=== PATIENT | female | born 1990 | race Caucasian/White ===

== ENCOUNTER 2018-04-25 09:44 | Emergency (ER) | payer BC ==
--- NOTE | 2018-04-25 10:26 | ED ---
Throat Pain/Nasal Congestion - HPI Summary HPI Summary: Patient is a 27-year-old female who presents emergency department for a sore throat, dry cough and diarrhea 3-4 days. He states she's been taking over-the- counter anti-inflammatories as well as drinking tea and other home remedies with minimal relief of sore throat. Associated symptoms of chills. Denies abdominal pain, vomiting, urinary symptoms. Denies sick contacts. Symptoms are mild in severity. Eating and swallowing makes symptoms worse. Nothing makes symptoms better. - History of Current Complaint Chief Complaint: EDThroatPain Time Seen by Provider: 04/25/18 10:08 Hx Obtained From: Patient - Allergies/Home Medications Allergies/Adverse Reactions: Allergies Allergy/AdvReac Type Severity Reaction Status Date / Time MS Amoxicillin [Amoxicillin] Allergy Rash Verified 09/19/16 18:52 MS Cephalexin [From Keflex] Allergy Diarrhea Verified 09/19/16 18:52 MS Ciprofloxacin [From Cipro] Allergy Diarrhea Verified 09/19/16 18:52 MS Penicillins [Penicillins] Allergy Rash Verified 09/19/16 18:52 MS Sulfa Drugs [Sulfa Drugs] Allergy Rash Verified 09/19/16 18:52 Home Medications: Home Medications Ibuprofen TAB* [Advil TAB*] 400 - 600 mg PO TID PRN 04/25/18 [History Confirmed 04/25/18] PMH/Surg Hx/FS Hx/Imm Hx Previously Healthy: Yes Endocrine/Hematology History: Denies: Hx Diabetes, Hx Thyroid Disease Cardiovascular History: Denies: Hx Hypertension Respiratory History: Denies: Hx Asthma, Hx Chronic Obstructive Pulmonary Disease (COPD) GI History: Denies: Hx Ulcer - Surgical History Surgery Procedure, Year, and Place: hernia surgery as infant Infectious Disease History: No Infectious Disease History: Denies: Hx Hepatitis, Hx Human Immunodeficiency Virus (HIV), History Other Infectious Disease, Traveled Outside the [place] in Last 30 Days - Family History Known Family History: Positive: Hypertension, Diabetes - Social History Occupation: Employed Full-time Lives: With Family Alcohol Use: Rare Substance Use Type: Reports: None Hx Tobacco Use: No Smoking Status (MU): Never Smoked Tobacco Review of Systems Positive: Chills Eyes: Negative Positive: Sore Throat Cardiovascular: Negative Positive: Cough. Negative: Shortness Of Breath Positive: Diarrhea. Negative: Abdominal Pain, Vomiting, Nausea Genitourinary: Negative Negative: burning, dysuria, frequency Neurological: Negative All Other Systems Reviewed And Are Negative: Yes Physical Exam Triage Information Reviewed: Yes Vital Signs On Initial Exam: Initial Vitals Temp Pulse Resp BP Pulse Ox 97.8 F 83 17 153/73 100 04/25/18 10:00 04/25/18 10:00 04/25/18 10:00 04/25/18 10:00 04/25/18 10:00 Vital Signs Reviewed: Yes Appearance: Positive: Well-Appearing - Patient sitting on bed in no acute distress. Pleasant. Skin: Positive: Warm, Dry Head/Face: Positive: Normal Head/Face Inspection Eyes: Positive: Normal ENT: Positive: TMs normal, Other - Oropharynx is injected with mild bilateral tonsillar edema, exudate on the right. Uvula is midline without deviation or edema. No drooling or muffled voice. Neck: Positive: Supple, No Lymphadenopathy. Negative: Nuchal Rigidity Respiratory/Lung Sounds: Positive: Clear to Auscultation, Breath Sounds Present Cardiovascular: Positive: Normal, RRR Abdomen Description: Positive: Nontender, Soft Neurological: Positive: Normal, CN Intact II-III Psychiatric: Positive: Affect/Mood Appropriate Diagnostics - Vital Signs Vital Signs Temp Pulse Resp BP Pulse Ox 04/25/18 10:00 97.8 F 83 17 153/73 100 - Laboratory Lab Statement: Any lab studies that have been ordered have been reviewed, and results considered in the medical decision making process. EENT Course/Dx - Course Course Of Treatment: Patient presenting with a sore throat. She is afebrile with stable vital signs. Rapid strep is positive. Given patient's allergies Will treat with clindamycin. Advised Tylenol or Motrin for pain as directed. Increase fluids. Close follow-up with PCP. Patient understands and agrees with plan. To return to ER symptoms change or worsen. - Diagnoses Provider Diagnoses: Strep pharyngitis Discharge - Sign-Out/Discharge Documenting (check all that apply): Discharge/Admit/Transfer - Discharge Plan Condition: Good Disposition: HOME Prescriptions: Clindamycin Cap(NF) [Clindamycin Cap 300 mg Cap(NF)] 300 mg PO Q8H #30 cap Patient Education Materials: Strep Throat (ED) Referrals: Willem Padilla MD [Primary Care Provider] - Additional Instructions: Follow up with PCP Take antibiotic as directed Increase fluids Tylenol or Motrin for pain as directed Return to ER if symptoms change or worsen - Billing Disposition and Condition Condition: GOOD Disposition: Home
[2018-04-25 11:21] VITALS: BP 137/74
== END 2018-04-25 11:20 | disposition home or self-care (01) ==
LOC: ED 09:44
DX: J02.0 Streptococcal pharyngitis (principal); Z88.0 Allergy status to penicillin; Z88.3 Allergy status to other anti-infective agents; Z88.2 Allergy status to sulfonamides
CPT/HCPCS: 87651; 99282

== ENCOUNTER 2019-01-10 08:32 | Emergency (ER) | payer BC ==
[2019-01-10] MEDS ORDERED: Ondansetron INJ* 2 MG/ML VIAL IV ONE ×2 (08:58→09:09)
[2019-01-10 09:06] LABS: Influenza A Molecular NEGATIVE (Negative); Influenza B Molecular NEGATIVE (Negative)
[2019-01-10] MEDS ORDERED: NS 0.9% 1000 ML** 1,000 ML IV ONE (09:09)
[2019-01-10] MEDS ORDERED: Ketorolac INJ* 30 MG/ML 1 ML VIAL IV PUSH ONE (09:09)
[2019-01-10 09:23] LABS: ABS Basophils 0 10^3/ul (0-0.2); ABS Eosinophils 0.1 10^3/ul (0-0.6); ABS Lymphocytes 1.7 10^3/ul (1.0-4.8); ABS Monocytes 0.5 10^3/ul (0-0.8); ABS Neutrophils 5.7 10^3/ul (1.5-7.7); ABS Nucleated RBC 0 10^3/ul; Eosinophil % 1.6 %; Hematocrit 43 % (35-47); Hemoglobin 14.5 g/dl (12.0-16.0); Lymphocyte % 21.1 %; Mean Corpuscular HGB Conc 34 g/dl (31-36); Mean Corpuscular Hemoglobin 30 pg (27-31); Mean Corpuscular Volume 87 fL (80-97); Mean Platelet Volume 7.7 fL (7.4-10.4); Nucleated Red Blood Cells % 0; Platelet Count 307 10^3/ul (150-450); Red Blood Count 4.92 10^6/ul (4.00-5.40); Red Cell Distribution Width 13 % (10.5-15)
[2019-01-10 09:51] LABS: Urine Appearance Cloudy; Urine Bacteria Absent (Absent); Urine Bilirubin Negative (Negative); Urine Blood Negative (Negative); Urine Color Yellow; Urine Glucose Negative (Negative); Urine Ketones Negative (Negative); Urine Nitrite Negative (Negative); Urine Protein Negative (Negative); Urine Red Blood Cell Absent (Absent); Urine Specific Gravity 1.024 (1.010-1.030); Urine Squamous Epithelial Cell Present (Absent); Urine Urobilinogen Negative (Negative); Urine White Blood Cell Absent (Absent)
[2019-01-10 09:52] LABS: Albumin 4.4 g/dL (3.2-5.2); Albumin/Globulin Ratio 1.5 (1-3); BUN/Creatinine Ratio 14.8 (8-20); C Reactive Protein 3.15 mg/L (<8.01); Calcium 8.6 mg/dL (8.6-10.3); EGFR African American 142.4 (>60); EGFR Non-African American 117.7 (>60); Globulin 2.9 g/dL (2-4); Potassium 3.8 mmol/L (3.5-5.0); Total Bilirubin 0.5 mg/dL (0.2-1.0); Total Protein 7.3 g/dL (6.4-8.9)
[2019-01-10] MEDS ORDERED: Acetaminop/Codeine 30 MG TAB* 1 TAB (300 MG/30 MG) PO ONE (11:35)
[2019-01-10 12:29] VITALS: BP 112/59
--- NOTE | 2019-01-10 13:33 | ED ---
Headache - HPI Summary HPI Summary: Patient is a 28-year-old female presenting to the ED a headache this started on Monday, which she states turned into a migraine. She states the headache went away on Monday and returned yesterday and has been intermittent since then. She is also endorsing nausea, vomiting, diarrhea and body aches. She is no official diagnosis of migraines and has no medication for this. She has been using Tylenol at home without relief. She has been unable to use ibuprofen. She denies any vaginal discharge, UA symptoms. She does endorse neck pain, however this is bilateral to the sides of the neck and denies any pain to the spine. Headache is not worse or better with positioning. She does endorse photophobia, which she states is normal with her headaches. She denies any back pain otherwise. No fevers, sweats or chills. This headache was not sudden in onset, not worst of life. - History Of Current Complaint Chief Complaint: EDGeneral Stated Complaint: HEADACHE FOR DAYS, GENERAL ILLNESS Time Seen by Provider: 01/10/19 08:42 Hx Obtained From: Patient Hx Last Menstrual Period: 2 months ago, irregular periods. Onset/Duration: Gradual Onset Initially Headache Was: Initial Pain Scale(0-10)= - 8 Currently Pain Is: Current Pain Scale(0-10)= - 8 Timing: Constant Character: Sharp Location of Headache: Diffuse, Temporal Aggravating Factor: Nothing Allevating Factors: Nothing Associated Signs And Symptoms: Nausea, Vomiting, Other (Noted In Comments) - Neck pain, however no stiffness is noted - Risk Factors SAH Risk Factors: Negative Meningitis Risk Factors: Negative SDH Risk Factors: Negative Temporal Arteritis Risk Factors: Negative - Allergies/Home Medications Allergies/Adverse Reactions: Allergies Allergy/AdvReac Type Severity Reaction Status Date / Time amoxicillin Allergy Rash Verified 01/10/19 08:40 cephalexin [From Keflex] Allergy Diarrhea Verified 01/10/19 08:40 ciprofloxacin [From Cipro] Allergy Diarrhea Verified 01/10/19 08:40 Penicillins Allergy Rash Verified 01/10/19 08:40 Sulfa (Sulfonamide Allergy Rash Verified 01/10/19 08:40 Antibiotics) PMH/Surg Hx/FS Hx/Imm Hx Previously Healthy: Yes Endocrine/Hematology History: Denies: Hx Diabetes, Hx Thyroid Disease Cardiovascular History: Denies: Hx Hypertension Respiratory History: Denies: Hx Asthma, Hx Chronic Obstructive Pulmonary Disease (COPD) GI History: Denies: Hx Ulcer - Surgical History Surgery Procedure, Year, and Place: hernia surgery as - Immunization History Hx Pertussis Vaccination: No Immunizations Up to Date: Yes Infectious Disease History: No Infectious Disease History: Denies: Hx Hepatitis, Hx Human Immunodeficiency Virus (HIV), History Other Infectious Disease, Traveled Outside the [place] in Last 30 Days - Family History Known Family History: Positive: Hypertension, Diabetes - Social History Occupation: Employed Full-time Lives: With Family Alcohol Use: Rare Hx Substance Use: No Substance Use Type: Reports: None Hx Tobacco Use: No Smoking Status (MU): Never Smoked Tobacco Review of Systems Constitutional: Negative Negative: Fever, Chills, Fatigue, Skin Diaphoresis Positive: Photophobia Negative: Palpitations, Chest Pain Negative: Shortness Of Breath, Cough Positive: Vomiting, Nausea. Negative: Abdominal Pain, Diarrhea Genitourinary: Negative Positive: no symptoms reported, see HPI Positive: Myalgia Skin: Negative Positive: Headache. Negative: Weakness, Paresthesia, Numbness Negative: Anxious, Depressed All Other Systems Reviewed And Are Negative: Yes Physical Exam Triage Information Reviewed: Yes Vital Signs On Initial Exam: Initial Vitals Temp Pulse Resp BP Pulse Ox 97.4 F 65 20 159/77 98 01/10/19 08:36 01/10/19 08:36 01/10/19 08:36 01/10/19 08:36 01/10/19 08:36 Vital Signs Reviewed: Yes Appearance: Positive: Well-Appearing, Well-Nourished Skin: Positive: Warm Head/Face: Positive: Normal Head/Face Inspection Eyes: Positive: EOMI, Conjunctiva Clear Neck: Positive: No Lymphadenopathy Respiratory/Lung Sounds: Positive: Clear to Auscultation, Breath Sounds Present Cardiovascular: Positive: RRR, Pulses are Symmetrical in both Upper and Lower Extremities Musculoskeletal: Positive: Normal, Strength/ROM Intact Neurological: Positive: Sensory/Motor Intact, Alert, Oriented to Person Place, Time, Other - Negative Kernig, negative Brudzinski Psychiatric: Positive: Affect/Mood Appropriate Diagnostics - Vital Signs Vital Signs Temp Pulse Resp BP Pulse Ox 01/10/19 12:27 97.9 F 59 18 112/59 97 01/10/19 11:51 60 119/57 97 01/10/19 08:36 97.4 F 65 20 159/77 98 - Laboratory Lab Results: Lab Results 01/10/19 01/10/19 01/10/19 Range/Units 08:54 09:09 09:13 WBC 8.0 (3.5-10.8) 10^3/ul RBC 4.92 (4.00-5.40) 10^6/ul Hgb 14.5 (12.0-16.0) g/dl Hct 43 (35-47) % MCV 87 (80-97) fL MCH 30 (27-31) pg MCHC 34 (31-36) g/dl RDW 13 (10.5-15) % Plt Count 307 (150-450) 10^3/ul MPV 7.7 (7.4-10.4) fL Neut % (Auto) 71.0 % Lymph % (Auto) 21.1 % Lyman % (Auto) 5.8 % Eos % (Auto) 1.6 % Baso % (Auto) 0.5 % Absolute Neuts (auto) 5.7 (1.5-7.7) 10^3/ul Absolute Lymphs (auto) 1.7 (1.0-4.8) 10^3/ul Absolute Monos (auto) 0.5 (0-0.8) 10^3/ul Absolute Eos (auto) 0.1 (0-0.6) 10^3/ul Absolute Basos (auto) 0 (0-0.2) 10^3/ul Absolute Nucleated RBC 0 10^3/ul Nucleated RBC % 0 ESR Pending Sodium (135-145) mmol/L Potassium (3.5-5.0) mmol/L Chloride (101-111) mmol/L Carbon Dioxide (22-32) mmol/L Anion Gap (2-11) mmol/L BUN (6-24) mg/dL Creatinine (0.51-0.95) mg/dL Est GFR ( Amer) (>60) Est GFR (Non-Af Amer) (>60) BUN/Creatinine Ratio (8-20) Glucose (70-100) mg/dL Lactic Acid (0.5-2.0) mmol/L Calcium (8.6-10.3) mg/dL Total Bilirubin (0.2-1.0) mg/dL AST (13-39) U/L ALT (7-52) U/L Alkaline Phosphatase (34-104) U/L C-Reactive Protein (<8.01) mg/L Total Protein (6.4-8.9) g/dL Albumin (3.2-5.2) g/dL Globulin (2-4) g/dL Albumin/Globulin Ratio (1-3) Urine Color Yellow Urine Appearance Cloudy Urine pH 7.0 (5-9) Ur Specific [place] 1.024 (1.010-1.030) Urine Protein Negative (Negative) Urine Ketones Negative (Negative) Urine Blood Negative (Negative) Urine Nitrate Negative (Negative) Urine Bilirubin Negative (Negative) Urine Urobilinogen Negative (Negative) Ur Leukocyte Esterase Negative (Negative) Urine WBC (Auto) Absent (Absent) Urine RBC (Auto) Absent (Absent) Ur Squamous Epith Cells Present A (Absent) Urine Bacteria Absent (Absent) Urine Glucose Negative (Negative) Influenza A (Rapid) Negative (Negative) Influenza B (Rapid) Negative (Negative) 01/10/19 01/10/19 Range/Units 09:13 09:13 WBC (3.5-10.8) 10^3/ul RBC (4.00-5.40) 10^6/ul Hgb (12.0-16.0) g/dl Hct (35-47) % MCV (80-97) fL MCH (27-31) pg MCHC (31-36) g/dl RDW (10.5-15) % Plt Count (150-450) 10^3/ul MPV (7.4-10.4) fL Neut % (Auto) % Lymph % (Auto) % Lyman % (Auto) % Eos % (Auto) % Baso % (Auto) % Absolute Neuts (auto) (1.5-7.7) 10^3/ul Absolute Lymphs (auto) (1.0-4.8) 10^3/ul Absolute Monos (auto) (0-0.8) 10^3/ul Absolute Eos (auto) (0-0.6) 10^3/ul Absolute Basos (auto) (0-0.2) 10^3/ul Absolute Nucleated RBC 10^3/ul Nucleated RBC % ESR Sodium 139 (135-145) mmol/L Potassium 3.8 (3.5-5.0) mmol/L Chloride 106 (101-111) mmol/L Carbon Dioxide 26 (22-32) mmol/L Anion Gap 7 (2-11) mmol/L BUN 9 (6-24) mg/dL Creatinine 0.61 (0.51-0.95) mg/dL Est GFR ( Amer) 142.4 (>60) Est GFR (Non-Af Amer) 117.7 (>60) BUN/Creatinine Ratio 14.8 (8-20) Glucose 101 H (70-100) mg/dL Lactic Acid 1.6 (0.5-2.0) mmol/L Calcium 8.6 (8.6-10.3) mg/dL Total Bilirubin 0.50 (0.2-1.0) mg/dL AST 37 (13-39) U/L ALT 51 (7-52) U/L Alkaline Phosphatase 40 (34-104) U/L C-Reactive Protein 3.15 (<8.01) mg/L Total Protein 7.3 (6.4-8.9) g/dL Albumin 4.4 (3.2-5.2) g/dL Globulin 2.9 (2-4) g/dL Albumin/Globulin Ratio 1.5 (1-3) Urine Color Urine Appearance Urine pH (5-9) Ur Specific [place] (1.010-1.030) Urine Protein (Negative) Urine Ketones (Negative) Urine Blood (Negative) Urine Nitrate (Negative) Urine Bilirubin (Negative) Urine Urobilinogen (Negative) Ur Leukocyte Esterase (Negative) Urine WBC (Auto) (Absent) Urine RBC (Auto) (Absent) Ur Squamous Epith Cells (Absent) Urine Bacteria (Absent) Urine Glucose (Negative) Influenza A (Rapid) (Negative) Influenza B (Rapid) (Negative) Result Diagrams: 01/10/19 09:13 01/10/19 09:13 Lab Statement: Any lab studies that have been ordered have been reviewed, and results considered in the medical decision making process. Headache Course/Dx - Course Course Of Treatment: Patient is evaluated for diffuse headache, worse to the right temporal area 2 days. She states this feels different than her typical migraine as she states her typical migraine is only diffuse, but this has been more prevalent over the right temporal area. She states at home Tylenol has not been improving her symptoms. She does endorse nausea, vomiting, diarrhea and body aches. She denies leave she has the flu. Flu swab obtained and is negative. She denies any fevers, sweats, chills. Labs obtained and are unremarkable including a normal white count. On physical examination, Kernig's and Brudzinski's are negative. She is able to rotate about the neck, however with discomfort. Pain is worse with looking up and better with neck flexed and chin to chest. She is ordered Toradol, however states is unable to take this medication. She is given Benadryl and Reglan. She states this improved her symptoms of nausea, however continues to have a headache. She has been given Tylenol with Codeine which resolved her headache and other symptoms. She states she is ready to be discharged home. Her vital signs are stable. She is diagnosed with complicated headache. I discussed I am not diagnosing her officially with migraines and she will need follow-up with a neurologist as symptoms continue. - Diagnoses Differential Diagnosis/HQI/PQRI: Migraine, Other - Headache, viral syndrome, Provider Diagnoses: Nausea & vomiting, Headache Discharge - Sign-Out/Discharge Documenting (check all that apply): Patient Departure Patient Received Moderate/Deep Sedation with Procedure: No - Discharge Plan Condition: Stable Disposition: HOME Prescriptions: Acetaminop/Codeine 30 MG TAB* [Tylenol/Codeine 30 MG TAB*] 1 tab PO Q8H PRN #6 tab MDD 3 PRN Reason: Pain Patient Education Materials: Acute Headache (ED) Forms: *Work Release Referrals: Willem Padilla MD [Primary Care Provider] - Additional Instructions: please follow up with PCP regarding your continuing headaches/migraines Tylenol with Codeine up to 3 times daily only as needed for severe headaches Otherwise attempt to use Tylenol 650 mg [id number] up to 3 times daily Drink plenty of fluids - Billing Disposition and Condition Condition: STABLE Disposition: Home
[2019-01-10 14:35] LABS: Erythrocyte Sed Rate 8 mm/Hr (0-20)
== END 2019-01-10 12:29 | disposition home or self-care (01) ==
LOC: ED 08:32
DX: R11.2 Nausea with vomiting, unspecified (principal); R51 Headache; Z88.2 Allergy status to sulfonamides; Z88.0 Allergy status to penicillin
CPT/HCPCS: 36415; 80053; 81003; 83605; 85025; 85652; 86140; 96361; 96374; 96375; 96376; 99282; A9270-GY; J1885; J2405

== ENCOUNTER 2019-08-23 23:34 | Emergency (ER) | payer BC, MEDICAID ==
--- NOTE | 2019-08-24 02:00 | ED ---
Throat Pain/Nasal Congestion - HPI Summary HPI Summary: This pt is a 28 Y/O F presenting to [facility] accompanied by her with a CC 0of a ear infection that has been present since 08/19/19. She states that she was diagnosed with a L sided ear infection and was given amoxicillin but has had no effect. She states that she has had fevers, chills, N/V/D, sore throats, and headaches since the onset. She also states that her ear pain has shifted and is now currently in both ears. She has no aggravating or alleviating factors. She has a PMHx of psoriasis. - History of Current Complaint Chief Complaint: EDEarPain Time Seen by Provider: 08/24/19 01:50 Hx Obtained From: Patient Onset/Duration: Gradual Onset, Lasting Days, Still Present Severity: Moderate - 04/15 - Allergies/Home Medications Allergies/Adverse Reactions: Allergies Allergy/AdvReac Type Severity Reaction Status Date / Time amoxicillin Allergy Rash Verified 08/24/19 01:42 cephalexin [From Keflex] Allergy Diarrhea Verified 08/24/19 01:42 ciprofloxacin [From Cipro] Allergy Diarrhea Verified 08/24/19 01:42 Penicillins Allergy Rash Verified 08/24/19 01:42 Sulfa (Sulfonamide Allergy Rash Verified 08/24/19 01:42 Antibiotics) Home Medications: Home Medications Latanoprost 0.005% Eye Drop 1 drop BOTH EARS BEDTIME 08/24/19 [History Confirmed 08/24/19] Sertraline* 25 mg PO DAILY 08/24/19 [History Confirmed 08/24/19] PMH/Surg Hx/FS Hx/Imm Hx Previously Healthy: Yes Endocrine/Hematology History: Denies: Hx Diabetes, Hx Thyroid Disease Cardiovascular History: Denies: Hx Hypertension Respiratory History: Denies: Hx Asthma, Hx Chronic Obstructive Pulmonary Disease (COPD) GI History: Denies: Hx Ulcer - Surgical History Surgical History: Yes Surgery Procedure, Year, and Place: hernia surgery as infant - Immunization History Immunizations Up to Date: Yes Infectious Disease History: No Infectious Disease History: Denies: Hx Hepatitis, Hx Human Immunodeficiency Virus (HIV), History Other Infectious Disease, Traveled Outside the [place] in Last 30 Days - Family History Known Family History: Positive: Hypertension, Diabetes - Social History Occupation: Employed Full-time Lives: With Family Alcohol Use: Rare Hx Substance Use: No Substance Use Type: Reports: None Hx Tobacco Use: No Smoking Status (MU): Never Smoked Tobacco Review of Systems Positive: Fever, Chills Positive: Sore Throat, Ear Ache Positive: Vomiting, Diarrhea, Nausea Positive: Headache All Other Systems Reviewed And Are Negative: Yes Physical Exam - Summary Physical Exam Summary: Appearance: Well-appearing, Well-nourished, lying in bed comfortably Skin: Warm, notable psoriasis over her face, about the ears just below her hair line. Eyes: sclera anicteric, no conjunctival pallor ENT: mucous membranes moist, pharynx appears normal, Tympanic membranes are abnormal appearing and opaque, no landmarks visible. Neck: Supple, nontender Respiratory: Clear to auscultation, no signs of respiratory distress Cardiovascular: Normal S1, S2. No murmurs. Normal distal pulses in tibial and radial bilaterally. Abdomen: Soft, nontender, normal active bowel sounds present Musculoskeletal: Normal, Strength/ROM Intact Neurological: A&Ox3, awake and alert, mentation is normal, speech is fluent and appropriate Psychiatric: affect is normal, does not appear anxious or depressed Triage Information Reviewed: Yes Vital Signs On Initial Exam: Initial Vitals Temp Pulse Resp BP Pulse Ox 97.5 F 79 20 150/93 100 08/23/19 23:36 08/23/19 23:36 08/23/19 23:36 08/23/19 23:36 08/23/19 23:36 Vital Signs Reviewed: Yes Procedures - Sedation Patient Received Moderate/Deep Sedation with Procedure: No Diagnostics - Vital Signs Vital Signs Temp Pulse Resp BP Pulse Ox 08/24/19 01:22 99.5 F 75 18 146/81 100 08/23/19 23:36 97.5 F 79 20 150/93 100 - Laboratory Lab Statement: Any lab studies that have been ordered have been reviewed, and results considered in the medical decision making process. EENT Course/Dx - Course Course Of Treatment: This pt is a 28 Y/O F presenting to [facility] accompanied by her with a CC 0of a ear infection that has been present since 08/19/19. She states that she was diagnosed with a L sided ear infection and was given amoxicillin but has had no effect. She states that she has had fevers, chills, N /V/D, sore throats, and headaches since the onset. Her PE found that she her tympanic membranes are abnormal appearing and opaque, no landmarks visible and she had psoriasis about her hair line and going into her ears. She will be discahrged home with a Dx of bilateral ottis media and given pain medications. - Diagnoses Provider Diagnoses: Bilateral otitis media, Psoriasis Discharge ED - Sign-Out/Discharge Documenting (check all that apply): Patient Departure - discharge - Discharge Plan Condition: Stable Disposition: HOME Prescriptions: Amoxicillin/Clavulanate TAB* [Augmentin TAB 875*] 875 mg PO BID #20 tab oxyCODONE/Acetamin 5/325 MG* [Percocet 5/325 TAB*] 1 tab PO Q4H PRN #10 tab MDD 4 PRN Reason: Pain - Severe Patient Education Materials: Ear Infection (ED) Referrals: Willem Padilla MD [Primary Care Provider] - Additional Instructions: I am concerned that your psoriasis is contributing to the ear problem, as the inflammation extends deep into the ear canal. If you can get in to see your ENT or web application dev specialist they may be able to help. In the meantime I am switching you to a more broad spectrum antibiotic, augmentin. Stop the amoxicillin and start the augmentin tomorrow. - Billing Disposition and Condition Condition: STABLE Disposition: Home - Attestation Statements Document Initiated by Ne: Yes Documenting Scribe: Hammad Bautista Provider For Whom Ne is Documenting (Include Credential): Dayo Oconnor MD Scribe Attestation: Hammad Wyatt, scribed for Dayo Oconnro MD on 08/25/19 at 1921. Scribe Documentation Reviewed: Yes Provider Attestation: The documentation as recorded by the Hammad kumar accurately reflects the service I personally performed and the decisions made by me, Dayo Oconnor MD Status of Scribe Document: Viewed
[2019-08-24] MEDS ORDERED: oxyCODONE/Acetamin 5/325 MG* TAB PO ONE (02:14)
[2019-08-24 02:21] VITALS: BP 148/84
== END 2019-08-24 02:20 | disposition home or self-care (01) ==
LOC: ED 23:34
DX: H66.93 Otitis media, unspecified, bilateral (principal); L40.9 Psoriasis, unspecified; Z88.0 Allergy status to penicillin; Z79.899 Other long term (current) drug therapy; R50.9 Fever, unspecified; R11.2 Nausea with vomiting, unspecified; R19.7 Diarrhea, unspecified
CPT/HCPCS: 99282; A9270-GY

== ENCOUNTER 2019-11-25 19:22 | Emergency (ER) | payer BC, MEDICAID ==
--- NOTE | 2019-11-25 20:00 | ED ---
Influenza-Like Illness - HPI Summary HPI Summary: Patient complains of body aches, N/V/D, headache, sore throat, left ear pain, clear nasal discharge, dry mild cough 3 days. History of recurrent strep infections, recurrent ear infections. Denies fever, CP, SOB, abdominal pain, change in urine, change in BM, vaginal symptoms. Medical history is migraines, PCO as, scoliosis, glaucoma. Tylenol taken at 10 AM. - History of Current Complaint Chief Complaint: EDFluSymptoms Time Seen by Provider: 11/25/19 19:53 Hx Obtained From: Patient Onset/Duration: Gradual Onset, Lasting Days Severity: Moderate Associated Signs & Symptoms: Myalgia, Cough, Sore Throat, Nasal Congestion, Headache, Vomiting, Diarrhea - Allergy/Home Medications Allergies/Adverse Reactions: Allergies Allergy/AdvReac Type Severity Reaction Status Date / Time amoxicillin Allergy Rash Verified 11/25/19 19:39 cephalexin [From Keflex] Allergy Diarrhea Verified 11/25/19 19:39 ciprofloxacin [From Cipro] Allergy Diarrhea Verified 11/25/19 19:39 Penicillins Allergy Rash Verified 11/25/19 19:39 Sulfa (Sulfonamide Allergy Rash Verified 11/25/19 19:39 Antibiotics) Home Medications: Home Medications Latanoprost 0.005%* [Xalatan 0.005%*] 1 drop BOTH EYES BEDTIME 11/25/19 [ History Confirmed 11/25/19] PMH/Surg Hx/FS Hx/Imm Hx Endocrine/Hematology History: Denies: Hx Diabetes, Hx Thyroid Disease Cardiovascular History: Denies: Hx Hypertension Respiratory History: Denies: Hx Asthma, Hx Chronic Obstructive Pulmonary Disease (COPD) GI History: Denies: Hx Ulcer History: Denies: Hx Dialysis Sensory History: Denies: Hx Eye Prosthesis Opthamlomology History: Denies: Hx Legally Blind EENT History: Denies: Hx Deafness Neurological History: Denies: Hx Dementia - Surgical History Surgery Procedure, Year, and Place: hernia surgery as infant Infectious Disease History: No Infectious Disease History: Denies: Hx Hepatitis, Hx Human Immunodeficiency Virus (HIV), History Other Infectious Disease, Traveled Outside the [place] in Last 30 Days - Family History Known Family History: Positive: Hypertension, Diabetes - Social History Alcohol Use: Rare Hx Substance Use: No Substance Use Type: Reports: None Hx Tobacco Use: No Smoking Status (MU): Never Smoked Tobacco Review of Systems Constitutional: Negative Eyes: Negative Positive: Sore Throat, Ear Ache, Nasal Discharge Cardiovascular: Negative Positive: Cough Positive: Vomiting, Diarrhea, Nausea Genitourinary: Negative Positive: Myalgia Skin: Negative Positive: Headache Psychological: Normal All Other Systems Reviewed And Are Negative: Yes Physical Exam Triage Information Reviewed: Yes Vital Signs On Initial Exam: Initial Vitals Temp Pulse Resp BP Pulse Ox 98.3 F 71 15 149/86 98 11/25/19 19:36 11/25/19 19:36 11/25/19 19:36 11/25/19 19:36 11/25/19 19:36 Vital Signs Reviewed: Yes Appearance: Positive: Well-Appearing Skin: Positive: Warm Head/Face: Positive: Normal Head/Face Inspection Eyes: Positive: Normal ENT: Positive: Pharyngeal erythema, Uvula midline. Negative: Tonsillar swelling , Tonsillar exudate, Trismus, Muffled voice, Hoarse voice, Sinus tenderness Neck: Positive: Supple Respiratory/Lung Sounds: Positive: Clear to Auscultation Cardiovascular: Positive: Normal Abdomen Description: Positive: Nontender Musculoskeletal: Positive: Normal Neurological: Positive: Normal Psychiatric: Positive: Normal AVPU Assessment: Alert - [place] Coma Scale Best Eye Response: 4 - Spontaneous Best Motor Response: 6 - Obeys Commands Best Verbal Response: 5 - Oriented Coma Scale Total: 15 Procedures - Sedation Patient Received Moderate/Deep Sedation with Procedure: No Diagnostics - Vital Signs Vital Signs Temp Pulse Resp BP Pulse Ox 11/25/19 19:36 98.3 F 71 15 149/86 98 - Laboratory Lab Statement: Any lab studies that have been ordered have been reviewed, and results considered in the medical decision making process. Flu Symptom Course/Dx - Course Course Of Treatment: Patient complains of body aches, N/V/D, headache, sore throat, left ear pain, clear nasal discharge, dry mild cough 3 days. History of recurrent strep infections, recurrent ear infections. Denies fever, CP, SOB , abdominal pain, change in urine, change in BM, vaginal symptoms. Medical history is migraines, PCO as, scoliosis, glaucoma. Tylenol taken at 10 AM. Vital signs within normal limits. Carter negative. Flu negative. Strep negative. - Diagnoses Provider Diagnoses: Pharyngitis, Nausea & vomiting Discharge ED - Sign-Out/Discharge Documenting (check all that apply): Patient Departure - Discharge Plan Condition: Stable Disposition: HOME Prescriptions: ceFUROXime 250 MG TAB [Ceftin TAB 250 MG(*)] 500 mg PO BID 7 Days #14 tab Lidocaine 2% VISCOUS* [Xylocaine 2% Viscous*] 15 ml SWISH SPIT Q6H PRN #1 btl PRN Reason: Pain - Moderate Ondansetron ODT TAB* [Zofran 4 MG Odt TAB*] 4 mg PO Q8H PRN 4 Days #14 tab.odt PRN Reason: Nausea Patient Education Materials: Pharyngitis (ED) Referrals: Willem Padilla MD [Primary Care Provider] - Additional Instructions: Drink plenty of fluids to maintain hydration. Use Zofran as directed for nausea. Use lidocaine as directed for sore throat pain. Take antibiotics as directed for sore throat. Follow-up with primary care. Return to the ED for any new or worsening symptoms. - Billing Disposition and Condition Condition: STABLE Disposition: Home
[2019-11-25] MEDS ORDERED: Metoclopramide TAB* 10 MG PO ONE (20:21)
[2019-11-25] MEDS ORDERED: diPHENhydraMINE PO* 50 MG PO ONE (20:21)
[2019-11-25] MEDS ORDERED: Lidocaine 2% VISCOUS* 15 ML UDC PO ONE (20:21)
[2019-11-25] MEDS ORDERED: Acetaminophen TAB* 325 MG PO ONE (20:21)
[2019-11-25 21:09] LABS: Rapid Strep Molecular Negative (Negative)
[2019-11-25 21:15] LABS: Influenza A Molecular NEGATIVE (Negative); Influenza B Molecular NEGATIVE (Negative)
[2019-11-25 21:36] VITALS: BP 138/81
== END 2019-11-25 21:34 | disposition home or self-care (01) ==
LOC: ED 19:22
DX: J02.9 Acute pharyngitis, unspecified (principal); R11.2 Nausea with vomiting, unspecified; H92.02 Otalgia, left ear; R05 Cough
CPT/HCPCS: 36415; 86308; 87651; 99283; A9270-GY